=== PATIENT | female | born 1945 | race Hispanic/Latino ===

== ENCOUNTER 2017-05-27 12:00 | Inpatient (IN) | payer MEDICARE ==
[~2017-05-27] VITALS: Ht 162.6 cm; Wt 99.7 kg
[2017-05-27 11:58] VITALS: BP 125/74
[~2017-05-27 12:00] MED LIST: CHOL200013 PO; DIGO125T87 PO; HYDR25TA PO; LISI40TA4 PO; PRAV10TA39 PO
[2017-05-27 12:06] LABS: APPEARANCE,URINE Clear (CLEAR); BILIRUBIN,URINE Negative (NEGATIVE); COLOR,URINE Yellow (YELLOW); GLUCOSE, URINE (UA) Negative (NEGATIVE); KETONES,URINE Negative (NEGATIVE); LEUKOCYTE ESTERASE ,URINE Negative (NEGATIVE); NITRATE,URINE Negative (NEGATIVE); OCCULT BLOOD,URINE Negative (NEGATIVE); PH,URINE 5.5 (5.0-8.0); PROTEIN,URINE Negative (NEGATIVE)
[2017-05-27 12:41] LABS: INR 2.04 (0.85-1.15); PARTIAL THROMBOPLASTIN TIME 42.8 SEC (26.3-35.5); PROTHROMBIN TIME 20.6 SEC (9.6-11.6)
[2017-05-27] MEDS ORDERED: METF500T6 PO (12:53)
[2017-05-27] MEDS ORDERED: NIFE30TA98 PO (12:53)
[2017-05-27] MEDS ORDERED: METO100T14 PO (12:53)
[2017-05-27] MEDS ORDERED: WARF2.5T47 PO (12:53)
[2017-05-28] VITALS (23 sets, daily range): BP systolic 100–144; BP diastolic 61–90
[2017-05-28] MEDS ORDERED: [UNRECOGNIZED DRUG - OTHER] IRRIG SCH (06:00)
[2017-05-28] MEDS ORDERED: POLYMYXIN B SULFATE IRRIG SCH (06:00)
[2017-05-28] MEDS ORDERED: LACTATED RINGERS 1000ML 1,000 ML IV SCH ×2 (06:00→19:00)
[2017-05-28] MEDS ORDERED: BACITRACIN IRRIG SCH (06:00)
[2017-05-28 06:55] LABS: INR 1.42 (0.85-1.15); PARTIAL THROMBOPLASTIN TIME 32.6 SEC (26.3-35.5); PROTHROMBIN TIME 14.5 SEC (9.6-11.6)
[2017-05-28] MEDS ORDERED: SODIUM CHLORIDE 0.9% 1000ML 1,000 ML IV ONE (11:29)
[2017-05-28] MEDS ORDERED: GENTAMICIN 80 MG/NS 100 ML PB 100 ML IV ONE (11:29)
[2017-05-28 11:40] LABS: INR 1.32 (0.85-1.15); PARTIAL THROMBOPLASTIN TIME 31.8 SEC (26.3-35.5); PROTHROMBIN TIME 13.5 SEC (9.6-11.6)
[2017-05-28] MEDS ORDERED: PRENATAL VIT PO (12:40)
[2017-05-28] MEDS ORDERED: GINGKO PO (12:40)
[2017-05-28] MEDS ORDERED: FISH OIL PO (12:40)
[2017-05-28] MEDS ORDERED: MAGNESIUM PO (12:40)
[2017-05-28] MEDS: CLINDAMYCIN 900 MG/D5% WATER 50 ML IV SCH ×2 (13:45→14:00)
[2017-05-28] MEDS ORDERED: FENTANYL CITRATE PF 50 MCG/1 ML 2ML VIAL ONE ×4 (13:52→15:49)
[2017-05-28] MEDS ORDERED: MIDAZOLAM HCL 1 MG/ML 2ML VIAL ONE ×2 (13:52→17:50)
[2017-05-28] MEDS ORDERED: PROPOFOL 10 MG/ML 20ML VIAL IV ONE (13:52)
[2017-05-28] MEDS ORDERED: CITRATE DEXTROSE MC ONE (14:00)
[2017-05-28 15:28] LABS: INR 1.24 (0.85-1.15); PARTIAL THROMBOPLASTIN TIME 29.5 SEC (26.3-35.5); PROTHROMBIN TIME 12.7 SEC (9.6-11.6)
[2017-05-28] MEDS ORDERED: NEOSTIGMINE METHYLSULFATE 1MG/ML IV ONE (16:22)
[2017-05-28] MEDS ORDERED: SUCCINYLCHOLINE CHLORIDE 20 MG/ML 10 ML VIAL ONE (16:25)
[2017-05-28] MEDS ORDERED: ROCURONIUM BROMIDE 10MG/1ML 5ML VL ONE (16:25)
[2017-05-28] MEDS ORDERED: MEPERIDINE-PF 25 MG/ML SYG ONE (16:42)
[2017-05-28 17:30] LABS: HEMATOCRIT 29.7 % (36-48)
[2017-05-28] MEDS ORDERED: MORPHINE SULFATE 2 MG/ML 1ML SYG ONE (17:35)
[2017-05-28] MEDS ORDERED: MORPHINE SULFATE 10 MG/ML 1ML SYG IM PRN (19:00)
[2017-05-28] MEDS ORDERED: BISACODYL 10 MG SUPP.RECT RC PRN (19:00)
[2017-05-28] MEDS ORDERED: PROMETHAZINE HCL 25 MG/ML 1ML AMPULE IM PRN (19:00)
[2017-05-28] MEDS ORDERED: ACETAMINOPHEN 325 MG TAB PO PRN (19:00)
[2017-05-28] MEDS ORDERED: MAGNESIUM HYDROXIDE 30 ML/UDCUP PO PRN (19:00)
[2017-05-28] MEDS ORDERED: KETOROLAC TROMETHAMINE 15MG/ML ONE (19:41)
[2017-05-28] MEDS: GENTAMICIN 80 MG/NS 100 ML PB 100 ML IV SCH (19:57)
[2017-05-28] MEDS: METOPROLOL TARTRATE 50 MG TAB PO SCH (20:54)
[2017-05-28] MEDS ORDERED: ACETAMINOPHEN-CODEINE 300/30MG TAB ONE (23:58)
[2017-05-29] MEDS: CLINDAMYCIN 900 MG/D5% WATER 50 ML IV SCH ×2 (00:02→08:27)
[2017-05-29 00:24] LABS: HEMATOCRIT 26.1 % (36-48)
[2017-05-29] MEDS ORDERED: SODIUM CHLORIDE 0.9% 250 ML IV ONE (01:05)
[2017-05-29] MEDS: GENTAMICIN 80 MG/NS 100 ML PB 100 ML IV SCH ×2 (01:07→10:56)
[2017-05-29 04:30] VITALS: BP 128/73
[2017-05-29 06:17] LABS: INR 1.14 (0.85-1.15); PROTHROMBIN TIME 11.7 SEC (9.6-11.6)
[2017-05-29 06:18] LABS: HEMATOCRIT 28.1 % (36-48)
[2017-05-29] MEDS: KETOROLAC TROMETHAMINE 15MG/ML IV PRN ×2 (06:41→19:26)
[2017-05-29 07:33] VITALS: BP 92/53
[2017-05-29] MEDS: TRAMADOL HCL 50 MG TABLET PO PRN (08:28)
[2017-05-29] MEDS: DIGOXIN 125 MCG TABLET PO SCH (08:29)
[2017-05-29 11:05] VITALS: BP 110/65
[2017-05-29] MEDS: ACETAMINOPHEN-CODEINE 300/30MG TAB PO PRN (11:35)
[2017-05-29] MEDS: METOPROLOL TARTRATE 50 MG TAB PO SCH ×2 (13:39→20:46)
[2017-05-29 16:16] VITALS: BP 113/70
[2017-05-29 20:00] VITALS: BP 108/56
[2017-05-29] MEDS: ENOXAPARIN SODIUM 100 MG/1 ML SQ SCH (20:46)
[2017-05-29] MEDS: WARFARIN SODIUM 1 MG TAB PO SCH (20:47)
[2017-05-29] MEDS: NIFEDIPINE ER 30 MG TAB PO SCH (21:17)
[2017-05-30] VITALS (7 sets, daily range): BP systolic 92–131; BP diastolic 52–82
[2017-05-30 05:59] LABS: HEMATOCRIT 22.8 % (36-48); MEAN CORPUSCULAR HGB CONC 35.2 g/dL (32.0-36.0); MEAN CORPUSCULAR VOLUME 85.3 fL (79-99); PLATELET COUNT (AUTO) 120 K/uL (130-400); RED BLOOD CELL COUNT(AUTO) 2.67 MIL/uL (4.00-5.50); RED CELL DISTRIBUTION WIDTH 13.7 % (11.0-15.5); WHITE BLOOD COUNT (AUTO) 8.3 K/uL (4.8-10.8)
[2017-05-30 06:09] LABS: INR 1.17 (0.85-1.15); PROTHROMBIN TIME 11.9 SEC (9.6-11.6)
[2017-05-30 06:13] LABS: CREATININE 1.2 mg/dL (0.5-1.5); POTASSIUM 3.5 mmol/L (3.5-5.1)
[2017-05-30] MEDS: KETOROLAC TROMETHAMINE 15MG/ML IV PRN ×3 (09:00→22:15)
[2017-05-30] MEDS: TRAMADOL HCL 50 MG TABLET PO PRN ×2 (09:01→17:13)
[2017-05-30] MEDS: DIGOXIN 125 MCG TABLET PO SCH (09:29)
[2017-05-30] MEDS: METOPROLOL TARTRATE 50 MG TAB PO SCH ×2 (09:30→20:35)
[2017-05-30] MEDS: ENOXAPARIN SODIUM 100 MG/1 ML SQ SCH ×2 (09:30→20:40)
[2017-05-30] MEDS ORDERED: HYDRALAZINE HCL 20 MG/ML VIAL IV PRN (11:15)
[2017-05-30] MEDS ORDERED: LIDOCAINE HCL-MPF 1% 2ML VIAL IVP PRN (11:15)
[2017-05-30] MEDS ORDERED: GUAIFENESIN-DM 200/20 MG 10 ML PO PRN (11:15)
[2017-05-30] MEDS ORDERED: NITROGLYCERIN 0.4 MG SL TAB SL PRN (11:15)
[2017-05-30] MEDS ORDERED: ACETAMINOPHEN 325 MG TAB PO PRN ×2 (11:15)
[2017-05-30] MEDS ORDERED: POTASSIUM CHLORIDE 20MEQ/100ML 100 ML IV PRN (11:15)
[2017-05-30] MEDS ORDERED: LACTULOSE 20 GM/30 ML UDCUP PO PRN (11:15)
[2017-05-30] MEDS ORDERED: MAG HYDROX/AL HYDROX/SIMETH ES 30 ML SUSP UDCUP PO PRN (11:15)
[2017-05-30] MEDS ORDERED: POTASSIUM CHLORIDE 10% ELIXIR 20 MEQ/15 ML UDCUP PO PRN (11:15)
[2017-05-30] MEDS: INSULIN HUMULIN R 100 UNIT/ML 3ML SQ SCH ×3 (11:30→20:44)
[2017-05-30] MEDS ORDERED: ONDANSETRON HCL MDV 20ML 2 MG/ML VIAL IVP PRN (11:30)
[2017-05-30] MEDS: NIFEDIPINE ER 30 MG TAB PO SCH (20:36)
[2017-05-30] MEDS: **HM** PRAVASTATIN 10MG PO SCH (21:00)
[2017-05-30] MEDS: WARFARIN SODIUM 1 MG TAB PO SCH (21:00)
[2017-05-30] MEDS ORDERED: WARFARIN SODIUM 5 MG TAB PO SCH (21:00)
[2017-05-30] MEDS: POTASSIUM CHLORIDE 20 MEQ ERTAB PO PRN (22:15)
[2017-05-31] VITALS: BP 92/54
[2017-05-31 04:00] VITALS: BP 92/53
[2017-05-31 05:31] LABS: HEMATOCRIT 22.8 % (36-48); MEAN CORPUSCULAR HEMOGLOBIN 29.6 pg (27.0-33.0); MEAN CORPUSCULAR HGB CONC 35.1 g/dL (32.0-36.0); MEAN CORPUSCULAR VOLUME 84.4 fL (79-99); PLATELET COUNT (AUTO) 107 K/uL (130-400); RED BLOOD CELL COUNT(AUTO) 2.71 MIL/uL (4.00-5.50); RED CELL DISTRIBUTION WIDTH 14.2 % (11.0-15.5); WHITE BLOOD COUNT (AUTO) 7.8 K/uL (4.8-10.8)
[2017-05-31 05:39] LABS: POTASSIUM 3.5 mmol/L (3.5-5.1)
[2017-05-31 05:46] LABS: INR 1.04 (0.85-1.15); PARTIAL THROMBOPLASTIN TIME 31.5 SEC (26.3-35.5); PROTHROMBIN TIME 10.7 SEC (9.6-11.6)
[2017-05-31 07:30] VITALS: BP 102/65
[2017-05-31] MEDS: INSULIN HUMULIN R 100 UNIT/ML 3ML SQ SCH ×4 (07:30→21:00)
[2017-05-31] MEDS: METFORMIN HCL 500 MG TABLET PO SCH (09:47)
[2017-05-31] MEDS: POTASSIUM CHLORIDE 20 MEQ ERTAB PO PRN ×2 (09:48→15:19)
[2017-05-31] MEDS: METOPROLOL TARTRATE 50 MG TAB PO SCH ×2 (09:48→20:16)
[2017-05-31] MEDS: DIGOXIN 125 MCG TABLET PO SCH (09:49)
[2017-05-31] MEDS: ENOXAPARIN SODIUM 100 MG/1 ML SQ SCH ×2 (09:50→20:18)
[2017-05-31] MEDS: HYDROCHLOROTHIAZIDE 25 MG TABLET PO SCH (09:50)
[2017-05-31 11:00] VITALS: BP 120/77
[2017-05-31] MEDS: MAGNESIUM HYDROXIDE 30 ML/UDCUP PO SCH (11:57)
[2017-05-31] MEDS: KETOROLAC TROMETHAMINE 15MG/ML IV PRN ×2 (14:16→21:02)
[2017-05-31 16:00] VITALS: BP 116/73
[2017-05-31] MEDS: TRAMADOL HCL 50 MG TABLET PO PRN (18:45)
[2017-05-31 20:00] VITALS: BP 123/51
[2017-05-31] MEDS: NIFEDIPINE ER 30 MG TAB PO SCH (20:16)
[2017-05-31] MEDS: WARFARIN SODIUM 1 MG TAB PO SCH (20:21)
[2017-05-31] MEDS: **HM** PRAVASTATIN 10MG PO SCH (20:22)
[2017-05-31] MEDS ORDERED: WARFARIN SODIUM 2 MG TAB PO SCH (21:00)
[2017-06-01] VITALS: BP 120/70
[2017-06-01] MEDS: ACETAMINOPHEN-CODEINE 300/30MG TAB PO PRN ×2 (03:45→20:51)
[2017-06-01 04:00] VITALS: BP 122/68
[2017-06-01] MEDS: INSULIN HUMULIN R 100 UNIT/ML 3ML SQ SCH ×4 (05:38→21:00)
[2017-06-01 05:41] LABS: HEMATOCRIT 22.6 % (36-48)
[2017-06-01 05:49] LABS: INR 1.07 (0.85-1.15)
[2017-06-01 08:04] VITALS: BP 116/62
[2017-06-01] MEDS: HYDROCHLOROTHIAZIDE 25 MG TABLET PO SCH (08:47)
[2017-06-01] MEDS: DIGOXIN 125 MCG TABLET PO SCH (08:47)
[2017-06-01] MEDS: METFORMIN HCL 500 MG TABLET PO SCH (08:47)
[2017-06-01] MEDS: METOPROLOL TARTRATE 50 MG TAB PO SCH ×2 (08:47→20:49)
[2017-06-01] MEDS: ENOXAPARIN SODIUM 100 MG/1 ML SQ SCH ×2 (08:48→20:50)
[2017-06-01] MEDS: TRAMADOL HCL 50 MG TABLET PO PRN (08:50)
[2017-06-01] MEDS: MAGNESIUM HYDROXIDE 30 ML/UDCUP PO SCH (09:15)
[2017-06-01] MEDS ORDERED: WARFARIN SODIUM 2 MG TAB PO SCH (10:00)
[2017-06-01 11:20] VITALS: BP 107/63
[2017-06-01 16:00] VITALS: BP 104/62
[2017-06-01] MEDS: WARFARIN SODIUM 2 MG TAB PO SCH ×2 (16:00→16:10)
[2017-06-01 20:30] VITALS: BP 145/78
[2017-06-01] MEDS: NIFEDIPINE ER 30 MG TAB PO SCH (20:49)
[2017-06-01] MEDS: **HM** PRAVASTATIN 10MG PO SCH (21:00)
[2017-06-02 00:04] VITALS: BP 125/66
[2017-06-02 05:10] VITALS: BP 124/64
[2017-06-02] MEDS: INSULIN HUMULIN R 100 UNIT/ML 3ML SQ SCH ×4 (05:42→21:00)
[2017-06-02 06:09] LABS: HEMATOCRIT 24.2 % (36-48)
[2017-06-02 06:23] LABS: INR 1.18 (0.85-1.15)
[2017-06-02] MEDS: ACETAMINOPHEN-CODEINE 300/30MG TAB PO PRN ×2 (06:34→20:44)
[2017-06-02 08:00] VITALS: BP 129/71
[2017-06-02] MEDS: HYDROCHLOROTHIAZIDE 25 MG TABLET PO SCH (08:47)
[2017-06-02] MEDS: METOPROLOL TARTRATE 50 MG TAB PO SCH ×2 (08:47→20:42)
[2017-06-02] MEDS: DIGOXIN 125 MCG TABLET PO SCH (08:47)
[2017-06-02] MEDS: METFORMIN HCL 500 MG TABLET PO SCH (08:47)
[2017-06-02] MEDS: MAGNESIUM HYDROXIDE 30 ML/UDCUP PO SCH (09:15)
[2017-06-02] MEDS: ENOXAPARIN SODIUM 100 MG/1 ML SQ SCH ×2 (09:29→20:42)
[2017-06-02] MEDS: TRAMADOL HCL 50 MG TABLET PO PRN (09:33)
[2017-06-02] MEDS ORDERED: WARFARIN SODIUM 2 MG TAB PO SCH ×2 (10:15→16:00)
[2017-06-02 11:57] VITALS: BP 125/66
[2017-06-02 16:00] VITALS: BP 117/76
[2017-06-02 19:57] VITALS: BP 124/76
[2017-06-02] MEDS: NIFEDIPINE ER 30 MG TAB PO SCH (20:42)
[2017-06-02] MEDS: **HM** PRAVASTATIN 10MG PO SCH (21:00)
[2017-06-03 00:29] VITALS: BP 136/86
[2017-06-03] MEDS: ACETAMINOPHEN-CODEINE 300/30MG TAB PO PRN (03:55)
[2017-06-03 03:58] VITALS: BP 112/73
[2017-06-03] MEDS: INSULIN HUMULIN R 100 UNIT/ML 3ML SQ SCH (05:42)
[2017-06-03 05:48] LABS: INR 1.23 (0.85-1.15); PROTHROMBIN TIME 12.9 SEC (9.6-11.6)
[2017-06-03 08:00] VITALS: BP 125/79
[2017-06-03] MEDS: METFORMIN HCL 500 MG TABLET PO SCH (08:55)
[2017-06-03] MEDS: METOPROLOL TARTRATE 50 MG TAB PO SCH (08:55)
[2017-06-03] MEDS: DIGOXIN 125 MCG TABLET PO SCH (08:55)
[2017-06-03] MEDS: HYDROCHLOROTHIAZIDE 25 MG TABLET PO SCH (08:55)
[2017-06-03] MEDS: ENOXAPARIN SODIUM 100 MG/1 ML SQ SCH (08:56)
[2017-06-03] MEDS: TRAMADOL HCL 50 MG TABLET PO PRN (08:57)
== END 2017-06-03 11:30 | disposition home health service (06) | DRG 470 ==
LOC: EDSTATUS 12:00 → DAHIP 05-28 10:35 → 4AH 05-28 17:27
PROC: 0SRC0JA Replacement of Right Knee Joint with Synthetic Substitute, Uncemented, Open Approach (ICD-10-PCS; principal; 2017-05-28 13:47)
PROC: 30233K1 Transfusion of Nonautologous Frozen Plasma into Peripheral Vein, Percutaneous Approach (ICD-10-PCS; 2017-05-29)
PROC: 30233N1 Transfusion of Nonautologous Red Blood Cells into Peripheral Vein, Percutaneous Approach (ICD-10-PCS; 2017-05-30)
DX: M17.11 Unilateral primary osteoarthritis, right knee (principal); D68.69 Other thrombophilia; D68.9 Coagulation defect, unspecified; E11.9 Type 2 diabetes mellitus without complications; E66.9 Obesity, unspecified; E78.00 Pure hypercholesterolemia, unspecified; E78.5 Hyperlipidemia, unspecified; I11.9 Hypertensive heart disease without heart failure; I25.10 Atherosclerotic heart disease of native coronary artery without angina pectoris; I48.2 Chronic atrial fibrillation; M21.169 Varus deformity, not elsewhere classified, unspecified knee; Z79.01 Long term (current) use of anticoagulants; Z86.73 Personal history of transient ischemic attack (TIA), and cerebral infarction without residual deficits; Z88.0 Allergy status to penicillin; Z68.37 Body mass index [BMI] 37.0-37.9, adult; Z88.1 Allergy status to other antibiotic agents; Z88.2 Allergy status to sulfonamides; Z91.018 Allergy to other foods; Z90.49 Acquired absence of other specified parts of digestive tract
CPT/HCPCS: 36415; 36430; 73560; 80048; 81003; 82948; 84132; 85014; 85018; 85027; 85610; 85730; 86592; 86850; 86900; 86901; 86922; 86927; 88305; 88311; 93005; 94760; 97039; A4344; A4606; J0330; J1580; J1650; J1885; J2175; J2250; J2704; J2710; J3010; J3490; J7030; J7120; P9016; P9017

== ENCOUNTER → 2017-07-24 | Outpatient (CLI) | payer MEDICARE ==
[~2017-07-24] MED LIST changes: +FISH OIL PO; +GINGKO PO; +MAGNESIUM PO; +METF500T6 PO; +METO100T14 PO; +NIFE30TA98 PO; +PRENATAL VIT PO; +WARF2.5T47 PO
[2017-07-24 10:15] LABS: BASOPHILS % (AUTO) 0.3 % (0.0-5.0); HEMATOCRIT 32.7 % (36-48); LYMPHOCYTES % (AUTO) 28.1 % (21.0-51.0); MEAN CORPUSCULAR HEMOGLOBIN 30.7 pg (27.0-33.0); MEAN CORPUSCULAR HGB CONC 35.2 g/dL (32.0-36.0); MEAN CORPUSCULAR VOLUME 87.2 fL (79-99); MONOCYTES % (AUTO) 5.7 % (3.0-13.0); NEUTROPHILS % (AUTO) 64.9 % (40.0-77.0); PLATELET COUNT (AUTO) 276 K/uL (130-400); RED BLOOD CELL COUNT(AUTO) 3.75 MIL/uL (4.00-5.50); WHITE BLOOD COUNT (AUTO) 8.3 K/uL (4.8-10.8)
[2017-07-24 11:32] LABS: ERYTHROCYTE SEDIMENTATION RATE 70 MM/HR (0-15)
== END | disposition home or self-care (01) ==
LOC: LAB 09:40
DX: M65.88 Other synovitis and tenosynovitis, other site (principal); R79.89 Other specified abnormal findings of blood chemistry
CPT/HCPCS: 36415; 85025; 85651

== ENCOUNTER 2021-09-23 20:15 | Emergency (ER) | payer MEDICARE ==
[~2021-09-23] VITALS: Ht 160 cm; Wt 95.3 kg
[~2021-09-23 20:15] MED LIST changes: +DIGO125T71 PO; -DIGO125T87 PO; -LISI40TA4 PO; +LISI40TA9 PO; +METF-444 PO; -METF500T6 PO; +WARF2.5T PO; -WARF2.5T47 PO
[2021-09-23 21:11] LABS: BASOPHILS % (AUTO) 0.2 % (0.0-5.0); EOSINOPHILS % (AUTO) 0.7 % (0.0-8.0); HEMATOCRIT 37.4 % (36-48); LYMPHOCYTES % (AUTO) 17.1 % (21.0-51.0); MEAN CORPUSCULAR HEMOGLOBIN 29.3 pg (27.0-33.0); MEAN CORPUSCULAR HGB CONC 34.8 g/dL (32.0-36.0); MEAN CORPUSCULAR VOLUME 84.4 fL (79-99); MONOCYTES % (AUTO) 6.2 % (3.0-13.0); NEUTROPHILS % (AUTO) 75.1 % (40.0-77.0); PLATELET COUNT (AUTO) 286 K/uL (130-400); RED BLOOD CELL COUNT(AUTO) 4.43 MIL/uL (4.00-5.50); RED CELL DISTRIBUTION WIDTH 13.2 % (11.0-15.5); WHITE BLOOD COUNT (AUTO) 10.6 K/uL (4.8-10.8)
[2021-09-23 21:12] LABS: APPEARANCE,URINE SL CLOUDY (CLEAR); BILIRUBIN,URINE NEGATIVE (NEGATIVE); COLOR,URINE YELLOW (YELLOW); GLUCOSE, URINE (UA) NEGATIVE (NEGATIVE); KETONES,URINE 5 mg/dL (NEGATIVE); LEUKOCYTE ESTERASE ,URINE SMALL (NEGATIVE); NITRATE,URINE NEGATIVE (NEGATIVE); OCCULT BLOOD,URINE NEGATIVE (NEGATIVE); PROTEIN,URINE NEGATIVE (NEGATIVE)
[2021-09-23 21:18] LABS: BACTERIA,URINE Few /HPF (None Seen); RBC,URINE 0-1 /HPF (0-1); SQUAMOUS EPITHELIAL CELL,UR Few /HPF (0-2)
[2021-09-23 21:20] LABS: CREATININE 1.2 mg/dL (0.5-1.5); POTASSIUM 3.2 mmol/L (3.5-5.1)
[2021-09-23 21:27] LABS: ALBUMIN 3.6 g/dL (3.5-5.0); TOTAL PROTEIN, SERUM 8.7 g/dL (6.0-8.3)
[2021-09-23] MEDS ORDERED: ACETAMINOPHEN 500 MG TABLET PO ONE (22:00)
[2021-09-23] MEDS ORDERED: KCL 20 MEQ ERTAB PO ONE (22:00)
[2021-09-23] MEDS ORDERED: KETOROLAC 15MG/ML VIAL (15MG/ML) IV ONE (22:00)
[2021-09-23] MEDS ORDERED: ACET-2893 PO (22:51)
[2021-09-23] MEDS ORDERED: TRAM50TA4 PO (22:51)
[2021-09-23 23:12] VITALS: BP 135/75
== END 2021-09-23 23:24 | disposition home or self-care (01) ==
LOC: EDH 20:15
DX: M54.41 Lumbago with sciatica, right side (principal); M47.816 Spondylosis without myelopathy or radiculopathy, lumbar region; E11.9 Type 2 diabetes mellitus without complications; E78.00 Pure hypercholesterolemia, unspecified; I10 Essential (primary) hypertension; I48.91 Unspecified atrial fibrillation; Z88.0 Allergy status to penicillin; Z88.2 Allergy status to sulfonamides; Z95.0 Presence of cardiac pacemaker; Z79.1 Long term (current) use of non-steroidal anti-inflammatories (NSAID); Z79.84 Long term (current) use of oral hypoglycemic drugs; Z79.899 Other long term (current) drug therapy; Z86.73 Personal history of transient ischemic attack (TIA), and cerebral infarction without residual deficits; Z87.891 Personal history of nicotine dependence
CPT/HCPCS: 99285; 96374; 80053; 84484; 85025; 81001; 36415; 72100; 93005 ×2; J1885

== ENCOUNTER 2021-12-22 12:23 | Emergency (ER) | payer MEDICARE ==
[~2021-12-22] VITALS: Ht 165.1 cm; Wt 79.8 kg
[~2021-12-22 12:23] MED LIST changes: +ACET-2893 PO; +TRAM50TA4 PO
[2021-12-22 13:30] LABS: BASOPHILS % (AUTO) 0.2 % (0.0-5.0); EOSINOPHILS % (AUTO) 0.5 % (0.0-8.0); MEAN CORPUSCULAR HEMOGLOBIN 29.4 pg (27.0-33.0); MEAN CORPUSCULAR HGB CONC 34.2 g/dL (32.0-36.0); MEAN CORPUSCULAR VOLUME 85.9 fL (79-99); MONOCYTES % (AUTO) 5.2 % (3.0-13.0); NEUTROPHILS % (AUTO) 73.5 % (40.0-77.0); PLATELET COUNT (AUTO) 302 K/uL (130-400); RED BLOOD CELL COUNT(AUTO) 4.19 MIL/uL (4.00-5.50); RED CELL DISTRIBUTION WIDTH 13.1 % (11.0-15.5); WHITE BLOOD COUNT (AUTO) 9.5 K/uL (4.8-10.8)
[2021-12-22 13:31] LABS: APPEARANCE,URINE CLOUDY (CLEAR); BILIRUBIN,URINE MODERATE mg/dL (NEGATIVE); COLOR,URINE YELLOW (YELLOW); GLUCOSE, URINE (UA) NEGATIVE (NEGATIVE); KETONES,URINE 15 mg/dL (NEGATIVE); LEUKOCYTE ESTERASE ,URINE LARGE Leu/uL (NEGATIVE); NITRATE,URINE NEGATIVE (NEGATIVE); OCCULT BLOOD,URINE SMALL (NEGATIVE); PROTEIN,URINE TRACE mg/dL (NEGATIVE)
[2021-12-22 13:39] LABS: CREATININE 1.9 mg/dL (0.5-1.5); POTASSIUM 3.7 mmol/L (3.5-5.1)
[2021-12-22 13:44] LABS: BACTERIA,URINE Many /HPF (None Seen); SQUAMOUS EPITHELIAL CELL,UR Many /HPF (0-2); WBC,URINE TNTC /HPF (0-1)
[2021-12-22 14:00] LABS: ALBUMIN 3.3 g/dL (3.5-5.0); MAGNESIUM 1.3 mg/dL (1.80-2.40); THYROID STIMULATING HORMONE 1.54 uIU/mL (0.36-3.74); TOTAL PROTEIN, SERUM 8.6 g/dL (6.0-8.3)
[2021-12-22] MEDS ORDERED: 0.9%NACL 1000ML 1,000 ML IV ONE (14:00)
[2021-12-22] MEDS ORDERED: LEVOFLOXACIN 500 MG/D5W 100 ML 100 ML ONE (14:51)
[2021-12-22] MEDS ORDERED: LEVOFLOXACIN 500 MG/D5W 100 ML 100 ML IV SCH (15:00)
[2021-12-22] MEDS ORDERED: MAGNESIUM OXIDE 400 MG TABLET PO ONE ×2 (16:08→17:00)
[2021-12-22] MEDS ORDERED: MAGNESIUM OXIDE 400 MG TABLET PO SCH (16:30)
[2021-12-22] MEDS ORDERED: LEVO250T75 PO (16:50)
[2021-12-22 16:57] VITALS: BP 122/65
[2021-12-22] MEDS ORDERED: TRAMADOL HCL 50 MG TABLET PO ONE (17:00)
[2021-12-24] MEDS ORDERED: LEVOFLOXACIN 250 MG/D5W 50ML 50 ML IVPB SCH (15:00)
== END 2021-12-22 17:07 | disposition home or self-care (01) ==
LOC: EDH 12:23
DX: I95.9 Hypotension, unspecified (principal); E86.0 Dehydration; E83.42 Hypomagnesemia; N28.9 Disorder of kidney and ureter, unspecified; N30.00 Acute cystitis without hematuria; E11.9 Type 2 diabetes mellitus without complications; E78.00 Pure hypercholesterolemia, unspecified; I10 Essential (primary) hypertension; Z86.73 Personal history of transient ischemic attack (TIA), and cerebral infarction without residual deficits; Z98.890 Other specified postprocedural states; Z79.899 Other long term (current) drug therapy; Z79.84 Long term (current) use of oral hypoglycemic drugs; Z88.0 Allergy status to penicillin; Z88.2 Allergy status to sulfonamides; Z88.1 Allergy status to other antibiotic agents; Z91.018 Allergy to other foods
CPT/HCPCS: 99285; 74176; 96365; 96361; 84443; 83735; 80053; 83690; 85025; 87077; 87088; 87186; 81001; 36415; 93005; J1956; J7030

== ENCOUNTER → 2022-02-19 | Outpatient (CLI) | payer MEDICARE ==
[~2022-02-19] MED LIST changes: +LEVO250T75 PO
[2022-02-19 14:30] LABS: CARBON DIOXIDE 28 mmol/L (21-32); CHLORIDE 104 mmol/L (101-111); CREATININE 1.2 mg/dL (0.5-1.5); DIGOXIN < 0.20 ng/mL (0.50-2.00); GLOMERULAR FILTR. RATE CALC 46 mL/min (>60); GLUCOSE,RANDOM 122 mg/dL (70-105); POTASSIUM 4.7 mmol/L (3.5-5.1); SODIUM SERUM 140 mmol/L (136-145); UREA NITROGEN, BLOOD 13 mg/dL (7-18)
== END | disposition home or self-care (01) ==
LOC: LAB 09:27
PROVIDERS: ATTEND Physician Assistant
DX: I48.20 Chronic atrial fibrillation, unspecified (principal)
CPT/HCPCS: 36415; 80048; 80162; 83735

== ENCOUNTER → 2022-03-24 | Outpatient (CLI) | payer MEDICARE ==
[2022-03-24 12:51] LABS: CREATININE 1.1 mg/dL (0.5-1.5); MAGNESIUM 1.2 mg/dL (1.80-2.40); POTASSIUM 4.3 mmol/L (3.5-5.1)
== END | disposition home or self-care (01) ==
LOC: LAB 09:37
PROVIDERS: ATTEND Physician Assistant
DX: I48.20 Chronic atrial fibrillation, unspecified (principal); E78.5 Hyperlipidemia, unspecified; E11.9 Type 2 diabetes mellitus without complications
CPT/HCPCS: 36415; 80048; 83036; 83735

== ENCOUNTER 2022-05-13 16:10 | Emergency (ER) | payer MEDICARE ==
[~2022-05-13] VITALS: Ht 165.1 cm; Wt 79.8 kg
[2022-05-13 16:58] LABS: BASOPHILS % (AUTO) 0.3 % (0.0-5.0); EOSINOPHILS % (AUTO) 1.5 % (0.0-8.0); HEMATOCRIT 32.9 % (36-48); LYMPHOCYTES % (AUTO) 16.5 % (21.0-51.0); MEAN CORPUSCULAR HEMOGLOBIN 28.5 pg (27.0-33.0); MEAN CORPUSCULAR HGB CONC 32.2 g/dL (32.0-36.0); MEAN CORPUSCULAR VOLUME 88.4 fL (79-99); MONOCYTES % (AUTO) 5.2 % (3.0-13.0); PLATELET COUNT (AUTO) 223 K/uL (130-400); RED BLOOD CELL COUNT(AUTO) 3.72 MIL/uL (4.00-5.50); RED CELL DISTRIBUTION WIDTH 13.7 % (11.0-15.5); WHITE BLOOD COUNT (AUTO) 7.9 K/uL (4.8-10.8)
[2022-05-13 17:06] LABS: CREATININE 1.1 mg/dL (0.5-1.5); POTASSIUM 3.9 mmol/L (3.5-5.1)
[2022-05-13 17:14] LABS: ALBUMIN 3.2 g/dL (3.5-5.0)
[2022-05-13 20:37] VITALS: BP 184/98
== END 2022-05-13 20:56 | disposition home or self-care (01) ==
LOC: EDH 16:10
DX: S00.03XA Contusion of scalp, initial encounter (principal); M25.511 Pain in right shoulder; M54.2 Cervicalgia; I10 Essential (primary) hypertension; E11.9 Type 2 diabetes mellitus without complications; E78.00 Pure hypercholesterolemia, unspecified; Z79.899 Other long term (current) drug therapy; Z79.84 Long term (current) use of oral hypoglycemic drugs; Z88.0 Allergy status to penicillin; Z88.2 Allergy status to sulfonamides; Z88.8 Allergy status to other drugs, medicaments and biological substances; Z98.890 Other specified postprocedural states; W18.39XA Other fall on same level, initial encounter; Y93.89 Activity, other specified; Y92.89 Other specified places as the place of occurrence of the external cause; Y99.8 Other external cause status
CPT/HCPCS: 36415; 70450; 71045; 72125; 72170; 80053; 84484; 85025; 93005